=== PATIENT | female | born 1970 | race Caucasian/White ===

== ENCOUNTER 2025-07-28 11:13 | Outpatient (CLI) | payer BC, SELFPAY ==
[2025-07-28 12:24] LABS: Alanine Aminotransferase 28 U/L (12-78); Albumin Level 4.5 g/dl (3.5-5.0); Albumin/Globulin Ratio 1.4 (1.1-1.8); Alkaline Phosphatase 75 U/L (38-126); Anion Gap 9.5 mEq/L (5-15); Aspartate Amino Transferase 32 U/L (14-36); Bilirubin,Total 0.6 mg/dl (0.2-1.3); Blood Urea Nitrogen 22 mg/dl (7-17); Calcium 9.7 mg/dl (8.4-10.2); Carbon Dioxide 29 mmol/L (22.0-30.0); Chloride 104 mmol/L (98-107); Creatinine,Serum 0.80 mg/dl (0.52-1.04); Estimated Glomerular Filt Rate 75 ml/min (>60); GFR (African American) 91 ML/MIN (>60); Globulin 3.3 g/dL (1.3-3.2); Glucose 107 mg/dl (74-100); Potassium 4.5 mmoL/L (3.5-5.1); Sodium 138 mmol/L (136-145); Total Protein,Serum 7.8 g/dl (6.3-8.2)
== END 2025-07-28 23:59 | disposition home or self-care (01) ==
LOC: LAB 11:16
PROVIDERS: PCP Nurse Practitioner Family; Visit Provider Internal Medicine Gastroenterology
DX: R10.13 Epigastric pain (principal)
CPT/HCPCS: 36415; 80053

== ENCOUNTER 2025-07-29 09:46 | Day surgery (SDC) | payer BC, SELFPAY ==
[2025-07-28 14:10] VITALS: BMI 42.2
--- NOTE | 2025-07-29 07:03 | EXP.HP ---
History of Present Illness *Admission Date: 07/29/25 *History of present illness: Mrs. Back is a 54-year-old female who is here for diagnostic EGD. She had the onset of more severe epigastric abdominal pain/dyspepsia that began 3 or 4 weeks ago and can be excruciating at times. This is improved over the last week. The patient did have symptomatic gallstones with cholecystectomy more than a year ago. She states that this is in the same region. She reports not having any gallstone pancreatitis or choledocholithiasis or elevated LFTs. The patient feels as if food gets stuck in mid epigastrium but not dysphagia. She reports spasm and pain in that region. She does have significant heartburn and reflux and takes lansoprazole. If she misses a dose of this, she will have symptoms that are more significant in the afternoon. She does have a lot of bloating and gassiness without belching. She reports early satiety but no nausea. She does feel that stress is playing a role and she is on buspirone 30 mg p.o. twice daily, bupropion and an SNRI (desvenlafaxine). The patient does report regular bowel function but sometimes feels as if she does not fully evacuate. She does state that her epigastric pain can sometimes radiate upwards and to the left side. The examination is deemed medically necessary for diagnostic EGD. The patient has been seen, interviewed and examined prior to the procedure by both myself and the anesthesia provider. [facility] Disclaimer: The information contained in this section may have been updated after the patient was seen, as this information can be updated by other users. Medical History GERD (gastroesophageal reflux disease) Anxiety with depression Luis Eduardo's disease Surgical History History of ankle surgery History of tubal ligation History of hernia surgery History of cholecystectomy Family History Other Cancer Social History (Updated 07/29/25 @ 11:44 by Gabrielle Minor RN) Smoking Status: Never smoker alcohol intake: never substance use type: denies use current occupational status: employed Travel in the last 8 weeks?: None caffeine: No Have you lived/traveled outside US in past 30 days?: No Contact w/someone who lives/traveled outside US past 30 days?: No Exposure to someone with infectious disease in past 14 days?: No Do you have a fever (greater than 100.4 F or 38 C)?: No Have you tested positive for COVID-19?: No Exposed to someone with COVID-19 in past 14 days?: No Do you have a sore throat?: No Do you have a cough?: No Do you have any weakness?: No Are you experiencing any nausea/vomitting?: No Do you have any diarrhea?: No Are you experiencing any unusual bleeding?: No Do you have any muscle aches/pain?: No Do you have any abdominal pain?: No Are you experiencing loss of taste or smell?: No Review of Systems Review of Systems Review of systems (narrative): Negative *Cardiovascular Comments: Negative *Gastrointestinal Comments: Negative *Genitourinary Comments: Negative *Musculoskeletal Comments: Negative *Neurologic Comments: Negative Meds Home Medications and Allergies Home Medications ?Medication ?Instructions ?Recorded ?Confirmed ?Type Berberine patch transdermal DAILY 07/28/25 History NAD+ patches transdermal 07/28/25 07/28/25 History Tummy comfort patches transdermal 07/28/25 07/28/25 History alprazolam 0.5 mg tablet,extended 0.5 mg PO NEEDED PRN Anxiety 07/28/25 07/28/25 History release 24 hr bupropion HCl 150 mg 24 hr tablet, 150 mg PO ONCE 07/28/25 07/28/25 History extended release bupropion HCl 300 mg 24 hr tablet, 300 mg PO ONCE 07/28/25 07/28/25 History extended release buspirone 30 mg tablet 30 mg PO BID 07/28/25 07/28/25 History cranberry extract 500 mg capsule 500 mg PO DAILY 07/28/25 07/28/25 History desvenlafaxine succinate 100 mg 100 mg PO ONCE 07/28/25 07/28/25 History tablet,extended release 24 hr lansoprazole 30 mg capsule,delayed 30 mg PO DAILY 07/28/25 07/28/25 History release metoprolol succinate 200 mg 400 mg PO ONCE 07/28/25 07/28/25 History tablet,extended release 24 hr multivitamin patch transdermal 07/28/25 07/28/25 History New Prescriptions to Start Prescriptions: Allergies Allergy/AdvReac Type Severity Reaction Status Date / Time cephalexin Allergy Anaphylaxis Verified 07/29/25 11:25 Exam Data for Last 24 hours I & O for Last 24 hours: Intake & Output 07/26/25 07/27/25 07/28/25 07/29/25 23:59 23:59 23:59 23:59 Weight 246 lb *Routine HEENT Exam Head: Present normocephalic Eye: Present EOMI and PERRL ENT: Present mucous membranes moist *Routine Neck Exam Neck: Present supple *Routine Respiratory Exam Respiratory: Present CTA bilaterally *Routine Cardiovascular Exam Cardiovascular: Present RRR *Routine Abdominal Exam Abdominal: Present soft and normoactive bowel sounds; Absent tenderness *Routine Rectal Exam Rectal:: deferred *Routine Genitalia Exam Genitalia:: deferred *Routine Extremities Exam Extremities: Absent cyanosis, clubbing or edema *Routine Skin Exam Skin: Present warm; Absent rash *Routine Neurological Exam Neurological: Present alert and oriented X3 Assessment and Plan *Assessment and plan (1) Dyspepsia: Status: Acute Category: Medical Code(s): R10.13 - Epigastric pain (2) Epigastric pain: Status: Acute Category: Medical Code(s): R10.13 - Epigastric pain (3) Early satiety: Status: Acute Category: Medical Code(s): R68.81 - Early satiety (4) Bloating: Status: Acute Category: Medical Code(s): R14.0 - Abdominal distension (gaseous) Plan A/P: 1. Dyspepsia/epigastric pain, bloating and early satiety is the preprocedural diagnosis. The patient will be anesthetized/sedated using MAC sedation. The patient has been seen and examined. Cardiac and lung assessment prior to the examination is stable. Proceed with planned diagnostic EGD.
--- NOTE | 2025-07-29 07:05 | HMH.PROCNOTE ---
[facility] Procedure Note Date: 07/29/25 Time: 12:23 Procedure Note:: Upper Endoscopy Procedure Report: Esophagogastroduodenoscopy with cold biopsies Endoscopost: Alejandro Herandez II, MD Referring Physician: LYNN Crystal [address] [facility] [place], [place] , [place] [address] Date of Procedure: July 29, 2025 Equipment: Olympus GIF-1100 standard upper endoscope Sedation: MAC sedation Indications: Mrs. Back is a 54-year-old female who is here for diagnostic EGD. She had the onset of more severe epigastric abdominal pain/dyspepsia that began 3 or 4 weeks ago and can be excruciating at times. This is improved over the last week. The patient did have symptomatic gallstones with cholecystectomy more than a year ago. She states that this is in the same region. She reports not having any gallstone pancreatitis or choledocholithiasis or elevated LFTs. The patient feels as if food gets stuck in mid epigastrium but not dysphagia. She reports spasm and pain in that region. She does have significant heartburn and reflux and takes lansoprazole. If she misses a dose of this, she will have symptoms that are more significant in the afternoon. She does have a lot of bloating and gassiness without belching. She reports early satiety but no nausea. She does feel that stress is playing a role and she is on buspirone 30 mg p.o. twice daily, bupropion and an SNRI (desvenlafaxine). The patient does report regular bowel function but sometimes feels as if she does not fully evacuate. She does state that her epigastric pain can sometimes radiate upwards and to the left side. The examination is deemed medically necessary for diagnostic EGD. Procedure: Prior to the procedure, a history and physical exam was performed, and patient's medications and allergies were reviewed. The risks, benefits and alternatives of the sedation and procedure were discussed with the patient. All questions were answered and informed consent was obtained. The patient was brought to the procedure room. Patient identification and proposed procedure were verified by the physician and the nurse. The patient was placed in a left lateral decubitus position and the scope was passed under direct vision. Throughout the procedure, the patient's blood pressure, pulse, and oxygen saturations were monitored continuously. The upper GI endoscopy was accomplished without difficulty. The patient tolerated the procedure well. Findings: The scope was passed directly into the upper esophagus and advanced to the third portion of the duodenum. The post bulbar duodenum, ampulla and duodenal bulb were normal with normal mucosa and conniventes. 2 biopsies were taken from the second portion of the duodenum for the disaccharidase assay. The scope was withdrawn through a normal duodenal bulb and pylorus into the stomach. There was bile reflux with mild linear reactive gastropathy of the antrum. There were multiple gastric fundic gland polyps in the body and fundus of the stomach (gastric polyposis). A cold biopsy was taken from the antrum. One of the gastric polyps was removed via cold biopsy. Upon retroflexion there was a small sliding 1 to 2 cm hiatal hernia. The scope was then withdrawn into the esophagus. There was no evidence of reflux esophagitis or Schmidt's. There were tertiary contractions and evidence of mild esophageal dysmotility. The remainder of the esophageal mucosa was normal. Impression: 1. Nonerosive GERD with mild esophageal dysmotility and very small sliding 1 to 2 cm hiatal hernia 2. Bile reflux with mild linear reactive gastropathy of antrum 3. Gastric fundic gland polyps (benign polyps with polyposis) Plan: I will follow-up the biopsies and disaccharidase assay. The patient does have functional dyspepsia and most of her symptoms of dyspepsia are related to and driven by lower intestinal gas pressure gradients/high gas pressure buildup resulting in backflow of bile and peptic fluid from the duodenum into the stomach (duodenal reflux). This gas production (carbon dioxide, hydrogen, methane, etc.) from the lower intestinal tract is the byproduct of colonic bacterial fermentation. This colonic fermentation occurs when there is more carbohydrate (dietary starches, sugars and high residue plant fiber) substrate that does not get digested (in the middle or small intestine) or occurs when there is colonic fecal buildup and colonic bacterial overgrowth. This indeed leads to bloating and the gas pressure buildup with gas pressure gradients that do drive backflow and dyspepsia.
[2025-07-29 11:43] VITALS: BP 155/90; PULSE 63; RESP 16; TEMP 36.1; O2SAT 97
--- NOTE | 2025-07-29 12:04 | EXP.ANES.CKL ---
[facility] Disclaimer: The information contained in this section may have been updated after the patient was seen, as this information can be updated by other users. Medical History GERD (gastroesophageal reflux disease) Anxiety with depression Luis Eduardo's disease Surgical History History of ankle surgery History of tubal ligation History of hernia surgery History of cholecystectomy Family History Other Cancer Social History (Updated 07/29/25 @ 11:44 by Gabrielle Minor RN) Smoking Status: Never smoker alcohol intake: never substance use type: denies use current occupational status: employed Travel in the last 8 weeks?: None caffeine: No Have you lived/traveled outside [place] in past 30 days?: No Contact w/someone who lives/traveled outside US past 30 days?: No Exposure to someone with infectious disease in past 14 days?: No Do you have a fever (greater than 100.4 F or 38 C)?: No Have you tested positive for COVID-19?: No Exposed to someone with COVID-19 in past 14 days?: No Do you have a sore throat?: No Do you have a cough?: No Do you have any weakness?: No Are you experiencing any nausea/vomitting?: No Do you have any diarrhea?: No Are you experiencing any unusual bleeding?: No Do you have any muscle aches/pain?: No Do you have any abdominal pain?: No Are you experiencing loss of taste or smell?: No [facility] Anesthesia Checklist Patient Identification Patient Identification: Verbal (Name & ) Structural Data Admitted From: Home Planned Operative Procedure/s: egd Consent for Planned Operative Procedure(s) Verified: Yes NPO Status Verified Time NPO: 00:00 Airway Assessment Mallampati Score:: Class II C-Spine Mobility Assessed: Yes TMJ Mobility Assessed: Yes Dentition: Good Dentition Neurological Assessment Level of Consciousness: Awake, Alert and Appropriate Anesthesia Plan Anesthesia Risk discussed: Yes Anesthesia Plan: Verified ASA Class: II Anesthesia Type: MAC
[2025-07-29] MEDS: LACTATED RINGERS 1000ML 1,000 ML 50 ML IV (12:06)
[2025-07-29 12:26] VITALS: BP 101/53; PULSE 67; RESP 18; O2SAT 90
[2025-07-29 12:36] VITALS: BP 103/56; PULSE 65; RESP 16; O2SAT 91
[2025-07-29 12:46] VITALS: BP 106/65; PULSE 67; RESP 18; O2SAT 95
[2025-07-29 12:51] VITALS: BP 124/65; PULSE 65; RESP 18; O2SAT 96
[2025-08-03 13:10] LABS: Interpretation Notes (.); Lactase 26.37 (>/= 14.0); Maltase 212.91 (>/= 110.0); Palatinase 15.62 (>/= 8.5); Reference Notes (.); Sucrase 65.1 (>/= 25.0)
== END 2025-07-29 12:51 | disposition home or self-care (01) ==
PROVIDERS: PCP Nurse Practitioner Family; Visit Provider Internal Medicine Gastroenterology
PROC: 0DJ08ZZ Inspection of Upper Intestinal Tract, Via Natural or Artificial Opening Endoscopic (ICD-10-PCS; CPT 43239; principal; 2025-07-29 12:00)
DX: K31.7 Polyp of stomach and duodenum (principal); K31.89 Other diseases of stomach and duodenum; K21.9 Gastro-esophageal reflux disease without esophagitis; K22.4 Dyskinesia of esophagus; K44.9 Diaphragmatic hernia without obstruction or gangrene; Z88.1 Allergy status to other antibiotic agents; Z90.49 Acquired absence of other specified parts of digestive tract
CPT/HCPCS: 43239; 82657; J2003; J2704; J7120